=== PATIENT | male | born 1985 | race African-American/Black ===

== ENCOUNTER 2024-07-01 18:37 | Emergency (ER) | payer SELFPAY ==
[~2024-07-01] VITALS: Ht 182.9 cm; Wt 75.0 kg
[2024-07-01 18:49] VITALS: BP 130/56; O2SAT 99
[2024-07-01] MEDS ORDERED: NAPR-1176 MT (22:14)
[2024-07-01] MEDS ORDERED: CYCL10TA21 MT (22:14)
[2024-07-01] MEDS: CYCLOBENZAPRINE 10MG TABLET PO ONE (22:30)
[2024-07-01] MEDS: NAPROXEN 250MG TABLET PO ONE (22:30)
[2024-07-01 22:32] VITALS: PULSE 81; RESP 18; TEMP 37.00296; O2SAT 100
== END 2024-07-01 22:35 | disposition home or self-care (01) ==
LOC: ER 18:37
DX: S09.90XA Unspecified injury of head, initial encounter (principal); V49.40XA Driver injured in collision with unspecified motor vehicles in traffic accident, initial encounter; M54.50 Low back pain, unspecified; M25.512 Pain in left shoulder; R42 Dizziness and giddiness; J45.909 Unspecified asthma, uncomplicated; M54.2 Cervicalgia; Y93.89 Activity, other specified; Y92.89 Other specified places as the place of occurrence of the external cause; Y99.8 Other external cause status
CPT/HCPCS: 99283